=== PATIENT | female | born 1970 | race Hispanic/Latino ===

== ENCOUNTER → 2017-10-31 | Outpatient (CLI) | payer OTHER ==
[~2017-10-31] MED LIST: LORAZEPAM INJ 2 MG/ML VIAL ONE
--- NOTE | 2017-10-31 13:44 | Diagnostic Imaging Report ---
EXAMINATION: MRI of the lumbar spine without contrast HISTORY: Low back pain radiating to the bilateral lower extremities, lumbar radiculopathy COMPARISON: None. TECHNIQUE: Sagittal T1, T2, STIR; axial T2 and proton density. FINDINGS: It is assumed that there are 5 lumbar vertebrae. Curvature/Alignment: Normal lordosis. Vertebrae: No evidence of recent fracture, infection, or neoplasm. Conus: Normal, terminating at L1-L2 Cauda equina: Unremarkable. Lower thoracic: Unremarkable. Paraspinal soft tissues: Unremarkable. Degenerative changes: L1-L2: Unremarkable. L2-L3: Unremarkable. L3-L4: Minimal asymmetric to the right disc bulge with right posterolateral annular fissuring. No associated canal or foraminal stenoses. L4-L5: Minimal symmetric disc pole which and facet arthrosis without canal or foraminal stenoses L5-S1: Within normal limits IMPRESSION: Minimal degenerative changes at L3-L4 and L4-L5 without spinal canal or foraminal stenosis. Particularly there is no evidence of nerve root compression. Signed by: Dr. Julissa Lucio M.D. on 10/31/2017 1:41 PM
== END ==
LOC: MRI 09:32
PROVIDERS: ATTEND Psychiatry & Neurology Clinical Neurophysiology
DX: M54.16 Radiculopathy, lumbar region (principal)
CPT/HCPCS: 72148; J2060

== ENCOUNTER → 2019-12-05 | Outpatient (CLI) | payer BC ==
--- NOTE | 2019-12-05 11:57 | Diagnostic Imaging Report ---
Left knee MRI without contrast. History: Knee pain. Medial meniscus tear. Decreased range of motion. Pain not responding to conservative management Comparison: None. Technique: Multiplanar multi-sequence MRI of the knee without contrast. Findings: Medial compartment: Degeneration and mild undersurface fraying involving the posterior horn of the medial meniscus with nondisplaced tear. Articular cartilage fraying and deep fissuring in the medial compartment with mild underlying bone marrow edema. The medial collateral ligament complex is intact. Lateral compartment: No meniscal tear or cartilage abnormality. The LCL complex is normal. Intercondylar notch: The ACL and PCL are intact. Patellofemoral compartment: No chondromalacia or patellar dislocation. Extensor mechanism: The quadriceps and patellar tendons are normal. Other findings: There is a joint effusion and synovitis. There is no acute fracture, subluxation or avascular necrosis. Tiny Rose's cyst. 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 Signed by: Dr. Alec Silver M.D. on 12/05/2019 11:54 AM
== END ==
LOC: MRI 10:24
PROVIDERS: ATTEND Specialist
DX: S83.222A Peripheral tear of medial meniscus, current injury, left knee, initial encounter (principal)
CPT/HCPCS: 73721; 81025; J2060